=== PATIENT | male | born 1950 | race African-American/Black ===

== ENCOUNTER 2016-08-01 15:01 | Emergency (ER) ==
--- NOTE | 2016-08-01 15:12 | ED.PDOC ---
General ED Provider: Dr. BLANCO WANG JR Chief Complaint: Foot Pain/Injury Stated Complaint: Large scabbed area covering left knee area. Pt states it started as a "blister." pt popped the fluid filled area et states "it got hard. " + Similar area, but smaller to rt knee. Had appt with clinic in June, but was late for appt. Was not seen.[End]1 month 98.5 71 20 94% 92/60 07/23. right pt presenmt faint dp and post tib on left absent r pt absent popliteal pulses present not crisp Time Seen by Physician: 15:27 Exam Limitations: No limitations Primary Care Provider: OWEN SERVIN Nursing and Triage Documentation Reviewed and Agree: Yes Review of Systems - Review Of Systems Constitutional: Reports: No symptoms Eyes: Reports: No symptoms Ears, Nose, Mouth, Throat: Reports: No symptoms Respiratory: Reports: No symptoms Cardiac: Reports: No symptoms GI: Reports: No symptoms : Reports: No symptoms Musculoskeletal: Reports: Other (left black foot and ankle no pulses left pt on right fair popliteal bilat) Skin: Reports: Change in color, Dryness, Lesions Neurological: Reports: Numbness (no 2 point able to detect pressure to below knee on left to upper and lower foot on right) Endocrine: Reports: No symptoms Hematologic/Lymphatic: Reports: No symptoms All Other Systems: Other Past Medical History - Past Medical History Endocrine: Reports: DM 2 Cardiovascular: Reports: Hypertension Respiratory: Reports: None Hematological: Reports: None Gastrointestinal: Reports: None Genitourinary: Reports: None Neuro/Psych: Reports: None Musculoskeletal: Reports: None Cancer: Reports: None - Surgical History General Surgical History: Reports: Tonsillectomy, Other (cyst removal /knot removed from neck) - Family History Family History: Reports: None - Social History Smoking Status: Current every day smoker, Heavy tobacco smoker Hx Substance Use: No Alcohol Screening: None Physical Exam - Physical Exam Appearance: Well-appearing, Thin Skin: Warm, Dry (3x5 cm dry healing full thickness muñoz both legs larger lesion right leg left foot gangrenous) Physician Notification - Case Discussed Physician Notified: bicking Time of Notification: 16:04 Critical Care Note - Critical Care Note Total Time (mins): 20 Course - Course Vital Signs: Temp Pulse Resp BP Pulse Ox 08/01/16 15:01 98.5 F 71 20 92/60 94 L Departure - Departure Time of Disposition: 16:11 Disposition: HOME SELF-CARE Discharge Problem: Injury of foot Instructions: Second Degree Burn (ED) Condition: Serious Pt referred to PMD for follow-up: Yes (Dr Yin vascular surgeon) Additional Instructions: paint left foot and ankle with betadine solution daily call Dr Yin office tomorrow to schedule appointment [phone] Prescriptions: Povidone-Iodine [Betadine] 10 ml TP DAILY #16 oz Allergies/Adverse Reactions: Allergies No Known Allergies Allergy (Verified 08/01/16 15:13) Home Medications: Ambulatory Orders Clopidogrel Bisulfate [Plavix] 75 mg PO d 01/30/16 Metformin HCl [Metformin HCl ER] 250 mg PO BID 08/01/16 Povidone-Iodine [Betadine] 10 ml TP DAILY #16 oz 08/01/16
[2016-08-01 15:13] VITALS: BP 92/60; TEMP 98.5; BMI 20.9
[2016-08-01] MEDS ORDERED: BOOSTRIX IM ONE (16:27)
== END 2016-08-01 17:23 | disposition home or self-care (01) ==
LOC: ED 15:01
DX: T25.222A Burn of second degree of left foot, initial encounter (principal); T79.9XXA Unspecified early complication of trauma, initial encounter; T24.221A Burn of second degree of right knee, initial encounter; T24.222A Burn of second degree of left knee, initial encounter; E11.9 Type 2 diabetes mellitus without complications; F17.210 Nicotine dependence, cigarettes, uncomplicated
CPT/HCPCS: 90471; 99283

== ENCOUNTER 2016-09-16 15:34 | Outpatient (CLI) ==
[2016-09-16 15:49] LABS: BASOPHILS # (AUTO) 0.1 K/uL (0-0.2); BASOPHILS % (AUTO) 0.8 % (0.0-3.0); EOSINOPHILS % (AUTO) 0.4 % (0.0-7.0); HEMOGLOBIN 10.2 g/dl (14.0-18.0); IMMATURE GRANULOCYTE % (AUTO) 1.2 % (0.0-5.0); LYMPHOCYTES # (AUTO) 0.8 K/uL (0.60-3.4); LYMPHOCYTES % (AUTO) 10.7 (10.0-50.0); MEAN CORPUSCULAR HEMOGLOBIN 28.8 pg (27.0-31.0); MEAN CORPUSCULAR HGB CONC 30.9 (31.8-35.4); MEAN CORPUSCULAR VOLUME 93.2 fl (80.0-94.0); MONOCYTES # (AUTO) 0.7 K/uL (0.4-2.0); MONOCYTES % (AUTO) 8.7 (0-10); NEUTROPHILS # (AUTO) 5.8 K/ul (2.0-6.9); NEUTROPHILS % (AUTO) 78.2; PLATELET COUNT 313 10^3/uL (140-440); RED BLOOD COUNT 3.54 10^6/ul (4.70-6.10); WHITE BLOOD COUNT 7.45 K/ul (4.2-10.2)
[2016-09-16 16:06] LABS: ALBUMIN 2.4 g/dL (3.4-5.0); ALBUMIN/GLOBULIN RATIO 0.63; ANION GAP 16.5; BILIRUBIN,TOTAL 0.26 mg/dL (0.00-1.20); BUN/CREATININE RATIO 33.66; CALCIUM 8.3 mg/dL (8.2-10.2); CREATININE 1.01 mg/dL (0.60-1.10); POTASSIUM 4.5 mmol/L (3.5-5.1); TOTAL PROTEIN 6.2 g/dL (5.8-8.1)
[2016-09-16 16:27] LABS: BILIRUBIN,URINE Negative (NEGATIVE); KETONES,URINE Negative (NEGATIVE); LEUKOCYTE ESTERASE ,URINE 2+ (NEGATIVE); NITRITE,URINE Negative (NEGATIVE); PH,URINE 5.5 (5-9); PROTEIN,URINE 1+ (NEGATIVE); URINE, BLOOD 1+ (NEGATIVE)
[2016-09-16 16:29] LABS: ADD URINE MICROSCOPIC YES
[2016-09-16 16:30] LABS: BACTERIA,URINE 3+ (NOT PRESENT)
== END 2016-09-16 15:35 | disposition home or self-care (01) ==
LOC: NONPT 15:34
PROVIDERS: ATTEND Family Medicine
DX: R50.9 Fever, unspecified (principal)
CPT/HCPCS: 80053; 81001; 85025; 87086; 87186

== ENCOUNTER 2016-10-01 08:17 | Outpatient (CLI) ==
[2016-10-01 08:48] LABS: BILIRUBIN,URINE Negative (NEGATIVE); KETONES,URINE Negative (NEGATIVE); LEUKOCYTE ESTERASE ,URINE Negative (NEGATIVE); NITRITE,URINE Negative (NEGATIVE); PH,URINE 5.5 (5-9); PROTEIN,URINE Negative (NEGATIVE); URINE, BLOOD Negative (NEGATIVE)
[2016-10-01 08:58] LABS: ADD URINE MICROSCOPIC NO
== END 2016-10-01 08:18 | disposition home or self-care (01) ==
LOC: NONPT 08:17
PROVIDERS: ATTEND Family Medicine
DX: N39.0 Urinary tract infection, site not specified (principal)
CPT/HCPCS: 81001

== ENCOUNTER 2017-09-26 13:15 | Emergency (ER) ==
[2017-09-26 13:30] VITALS: BP 92/63; TEMP 98.6
[2017-09-26 13:39] VITALS: BMI 36.8
--- NOTE | 2017-09-26 14:50 | CT ---
EXAM: CT scan of the chest without contrast HISTORY: Cough TECHNIQUE: Imaging of the chest was performed without intravenous contrast. 5 mm thin axial images and coronal and sagittal images were provided for interpretation. Comparison 01/24/2016 CT scan of the chest. FINDINGS: Emphysematous changes are seen within the lungs. There is a small right pleural effusion. There is mild consolidation seen within the dependent right lung base. There is a tiny left pleural effusion. There is ascites seen within the abdomen. The evaluation was limited without intravenous contrast. No lytic or blastic lesions are seen within the osseous structures. IMPRESSION: Limited evaluation without intravenous contrast. Small bilateral pleural effusions are seen, right greater than left. Mild pneumonia versus atelectasis seen in the dependent right lung base. Pulmonary emphysema. There is ascites seen within the abdomen. The etiology is unclear. CT scan of the abdomen and pelvis can be obtained for further evaluation if clinically indicated.
--- NOTE | 2017-09-26 15:07 | CT ---
EXAM: CT ABDOMEN AND PELVIS HISTORY: Diarrhea, pain TECHNIQUE: CT abdomen and pelvis without intravenous contrast. Images were reconstructed using 5 mm section thickness. Reformations were prepared. COMPARISON: 01/24/2016 FINDINGS: Diagnostic limitations exist without including contrast enhanced images. In addition, ther e appears to be diffuse subcutaneous and abdominal fat stranding as well as diffuse small volume asci reena which leads to difficulty clearly visualizing organs and abdominal compartments. No gross liver or splenic abnormality. Gallbladder is poorly seen although does not appear distended . The pancreas is poorly seen. Adrenal glands are poorly seen. No evidence of hydronephrosis. The kidneys appeared to have normal size. The ureters cannot be seen. There is mild to moderate athero sclerotic disease. Retroperitoneal structures are not clearly seen. Stomach appears mildly distende d with fluid. What appears to represent the appendix has no evidence of dilatation. There appears t o be a few distal colon diverticula. No evidence of bowel obstruction. Urinary bladder is grossly u nremarkable. Prostate is poorly seen. There appears to be some fluid consistency stool in the rectu m. No ventral abdominal wall hernia. Bones reveal no acute abnormality. No pneumoperitoneum is tim pected. Peripheral soft tissues demonstrate a large volume of gas extending from the perineum along the right perirectal space and then along the right hip subcutaneous tissues. IMPRESSION: 1. Peripheral soft tissues demonstrate a large volume of gas extending from the perineum along the r ight perirectal space and then along the right hip subcutaneous tissues. Although not well delineate d given complex background, regional abscess is likely and gas-forming microorganisms leading to gang layne and / or necrotizing infection is suspected. Surgical consultation is recommended. 2. Generalized edema. Small-volume diffuse ascites. 3. No bowel obstruction. Fluid consistency stool within the rectum consistent with the patient's hi story of diarrhea. 4. No free air. 5. Limited exam.
--- NOTE | 2017-09-26 15:17 | ED.PDOC ---
General ED Provider: Dr. DONNY HUDSON Chief Complaint: Non-specific Complaint Stated Complaint: WEAKNESS/ FAILURE THRIVE Time Seen by Physician: 13:30 Mode of Arrival: Wheelchair Information Source: Patient Exam Limitations: No limitations Primary Care Provider: OWEN SERVIN Nursing and Triage Documentation Reviewed and Agree: Yes Reviewed sepsis parameters & appropriate labs ordered?: Yes System Inflammatory Response Syndrome: Not Applicable Sepsis Protocol: For patient's 13 years and over: Temp is 96.8 and below OR 101 and greater Pulse >90 BPM Resp >20/minute Acutely Altered Mental Status Are patient's symptoms suggestive of a new infection, such as: -Pneumonia -Skin, Soft Tissue -Endocarditis -UTI -Bone, Joint Infection -Implantable Device -Acute Abdominal Infection -Wound Infection -Meningitis -Blood Stream Catheter Infection -Unknown System Inflammatory Response Syndrome: Not Applicable Miscellaneous Complaint Exam - Complex/Multi-System Complaint/Exam Onset/Duration: ONGOING BUT HAS BECOME WORSE PAST WEEK Symptoms Are: Still present Episodes Lasting: Weeks (WORSE X 7 DAYS LOW TO NO APPETITE) Initial Severity: Severe Current Severity: Severe Location of Pain: NO Associated Signs and Symptoms: Reports: Weakness, Short of air. Denies: Decreased responsiveness, Confusion, Agitation, Dizziness, Syncope, Headache, Cough, Wheezing, Hemoptysis, Chest pain, Palpitations, Edema, Nausea, Vomiting, Diarrhea, Abdominal pain, Back pain, Dysuria, Hematemesis, Melena, Decreased oral intake, Fever, Diaphoresis, Immunocompromised, Anticoagulation Therapy, Recent medication changes, Indwelling medical laboratory manager, Prior MRSA, Prior VRE, Recent trauma, Remote trauma Recent Echo/LV Function: No Respiratory Distress: None JVD Present: No Tachypnea Present: No Stridor Present: No Abdominal Findings: Present: Distention Glascow Coma Scale (see protocol): 15 Meningeal Signs Positive: No Focal Weakness: Present: None Focal Sensory Loss: Present: None Gait: Unable (BKA BILATERAL ) Quality Indicators for Cardiac Chest Pain: EKG in 10min. Quality Indicators for AMI: EKG in 10min. Quality Indicator For Non-Traumatic Chest Pain/Syncope: EKG Performed Review of Systems - Review Of Systems Constitutional: Reports: Malaise, Weakness, Loss of appetite Eyes: Reports: No symptoms Ears, Nose, Mouth, Throat: Reports: No symptoms Respiratory: Reports: Short of air Cardiac: Reports: No symptoms GI: Reports: No symptoms : Reports: No symptoms Musculoskeletal: Reports: No symptoms Skin: Reports: No symptoms Neurological: Reports: No symptoms Endocrine: Reports: No symptoms Hematologic/Lymphatic: Reports: No symptoms All Other Systems: Reviewed and Negative Past Medical History - Past Medical History Previously Healthy: Yes Endocrine: Reports: DM 2 Cardiovascular: Reports: Hypertension Respiratory: Reports: None Hematological: Reports: None Gastrointestinal: Reports: None Genitourinary: Reports: None Neuro/Psych: Reports: None Musculoskeletal: Reports: None Cancer: Reports: None Other Pertinent Past Medical History: knot removed from neck, tonsils htn dm - Surgical History General Surgical History: Reports: Tonsillectomy, Other (cyst removal /knot removed from neck) - Family History Family History: Reports: None - Social History Smoking Status: Current every day smoker, Light tobacco smoker Hx Substance Use: No Alcohol Screening: None Physical Exam - Physical Exam Appearance: Ill-appearing, No pain distress, Thin, Cachectic Ill-appearing: Severe Eyes: SANDRA, EOMI, Conjunctiva clear ENT: Dry mucosa Respiratory: Rhonchi Cardiovascular: RRR, Pulses normal, No rub, No murmur GI/: Soft, Nontender, No masses, Bowel sounds normal, No Organomegaly Musculoskeletal: Normal strength, ROM intact, No edema, No calf tenderness Skin: Warm, Dry, Normal color Neurological: Sensation intact, Motor intact, Reflexes intact, Cranial nerves intact, Alert, Oriented Psychiatric: Affect appropriate, Mood appropriate Physician Notification - Case Discussed Physician Notified: PERCY FITZGERALD Time of Notification: 15:30 (TRANSFER ) Critical Care Note - Critical Care Note Total Time (mins): 0 Course - Course Hematology/Chemistry: 09/26/17 14:05 09/26/17 14:05 Orders, Labs, Meds: Lab Review 09/26/17 09/26/17 09/26/17 13:56 14:05 14:05 WBC 12.29 H RBC 2.86 L Hgb 7.3 L Hct 21.2 L MCV 74.1 L MCH 25.5 L MCHC 34.4 RDW Coeff of Martha 16.8 H Plt Count 170 Immature Gran % (Auto) 0.2 Neut % (Auto) 96.8 Lymph % (Auto) 1.2 L Dawes % (Auto) 1.4 Eos % (Auto) 0.0 Baso % (Auto) 0.4 Immature Gran # (Auto) 0.0 Neut # (Auto) 11.9 H Lymph # (Auto) 0.2 L Dawes # (Auto) 0.2 L Eos # (Auto) 0.0 Baso # (Auto) 0.1 PT INR APTT Sodium 135 L Potassium 3.6 Chloride 100 Carbon Dioxide 20 L Anion Gap 18.6 BUN 102 H* Creatinine 3.47 H Estimated GFR (MDRD) 22.00 BUN/Creatinine Ratio 29.39 Glucose 105 Calcium 7.2 L Total Bilirubin 1.0 AST 60 H ALT 68 Alkaline Phosphatase 88 Total Creatine Kinase CK-MB (CK-2) CK-MB (CK-2) % Troponin I Total Protein 5.6 L Albumin 1.7 L Globulin 3.9 Albumin/Globulin Ratio 0.44 Procalcitonin Influ A Molecular Assay Negative by naat Influ B Molecular Assay Negative by naat 09/26/17 09/26/17 09/26/17 14:05 14:05 14:05 WBC RBC Hgb Hct MCV MCH MCHC RDW Coeff of Martha Plt Count Immature Gran % (Auto) Neut % (Auto) Lymph % (Auto) Dawes % (Auto) Eos % (Auto) Baso % (Auto) Immature Gran # (Auto) Neut # (Auto) Lymph # (Auto) Dawes # (Auto) Eos # (Auto) Baso # (Auto) PT 14.9 H INR 1.48 APTT 29.4 Sodium Potassium Chloride Carbon Dioxide Anion Gap BUN Creatinine Estimated GFR (MDRD) BUN/Creatinine Ratio Glucose Calcium Total Bilirubin AST ALT Alkaline Phosphatase Total Creatine Kinase 287 CK-MB (CK-2) 2.6 CK-MB (CK-2) % 0.70655 Troponin I 0.1050 Total Protein Albumin Globulin Albumin/Globulin Ratio Procalcitonin 34.56 Influ A Molecular Assay Influ B Molecular Assay Orders Category Date Time Status EKG-(ED ONLY) Stat CARDIO 09/26/17 13:51 Completed BLOOD CULTURE Stat LAB 09/26/17 14:05 Received CBC W/ AUTO DIFF Stat LAB 09/26/17 14:05 Completed COMPREHENSIVE METABOLIC PANEL Stat LAB 09/26/17 14:05 Completed CREATINE KINASE Stat LAB 09/26/17 14:05 Completed FLU A/B MOLECULAR Stat LAB 09/26/17 13:51 Uncollected FLU A/B MOLECULAR Stat LAB 09/26/17 13:56 Completed PARTIAL THROMBOPLASTIN TIME Stat LAB 09/26/17 14:05 Completed PROCALCITONIN Stat LAB 09/26/17 14:05 Completed PT WITH INR Stat LAB 09/26/17 14:05 Completed TROPONIN I Stat LAB 09/26/17 14:[address] ABDOMEN/PELVIS WO CONTRAST Stat RADS 09/26/17 13:[address] CHEST W/O CONTRAST Stat RADS 09/26/17 13:50 Completed Vital Signs: Temp Pulse Resp BP Pulse Ox 09/26/17 13:16 98.6 F 81 22 92/63 95 Departure - Departure Time of Disposition: 15:30 Disposition: TSF SHORT-TRM HOSP Discharge Problem: Renal failure Instructions: Acute Kidney Injury (DC) Condition: Fair Pt referred to PMD for follow-up: Yes IPMP verified?: No Allergies/Adverse Reactions: Allergies No Known Allergies Allergy (Verified 09/26/17 13:29) Home Medications: Ambulatory Orders Clopidogrel Bisulfate [Plavix] 75 mg PO d 01/30/16 Hydrocodone Bit/Acetaminophen [Gaines 5-325] 1 - 2 tab PO Q6HR PRN #12 tablet Metformin HCl [Metformin HCl ER] 250 mg PO BID 08/01/16
[2017-09-26] MEDS ORDERED: SODIUM CHLORIDE 500 ML IV STA (15:21)
[2017-09-26] MEDS ORDERED: ZOSYN 3.375 GM 3.375 GM in SODIUM CHLORIDE 50 ML IV STA (15:21)
== END 2017-09-26 16:20 | disposition short-term general hospital (02) ==
LOC: ED 13:15
DX: N19 Unspecified kidney failure (principal); R53.1 Weakness; R06.02 Shortness of breath; R62.7 Adult failure to thrive; E11.9 Type 2 diabetes mellitus without complications; I10 Essential (primary) hypertension; F17.210 Nicotine dependence, cigarettes, uncomplicated; Z79.899 Other long term (current) drug therapy
CPT/HCPCS: 36415; 80053; 82550; 82553; 84145; 84484; 85025; 85610; 85730; 87040; 87070; 87075; 87502; 93005; 93010; 96365; 99285